=== PATIENT | male | born 1970 | race African-American/Black ===

== ENCOUNTER 2018-04-10 12:22 | Emergency (ER) | payer MEDICARE ==
[2018-04-10 13:06] LABS: #Lymphocytes 1.2 thou/uL (1.20-3.40); #Monocytes 0.7 thou/uL (0.11-0.59); #Neutrophils 12.8 thou/uL (1.40-6.50); %Basophils 0.1 % (0.0-1.0); %Eosinophils 0.2 % (0.0-10.0); %Lymphocytes 8.3 % (21.0-51.0); %Monocytes 4.4 % (0.0-10.0); Hemoglobin 14.6 g/dL (14.0-18.0); Mean Corpuscular HGB CONC 31.3 g/dL (32.0-36.0); Mean Corpuscular Hemoglobin 31.1 pg (27.0-31.0); Mean Corpuscular Volume 99.6 fL (78.0-98.0); Mean Platelet Volume 10.8 fL (7.4-10.4); Platelet Count 195 thou/uL (130-400); RBC Distribution Width 18.2 % (11.5-14.5); Red Blood Cell (RBC) Count 4.68 mill/uL (4.70-6.10); White Blood Cell (WBC) Count 14.7 thou/uL (4.8-10.8)
[2018-04-10] MEDS ORDERED: Famotidine/PF 20 mg/2ml Vial SLOW IVP SCH (13:15)
[2018-04-10 13:30] LABS: ALT (SGPT) 15 U/L (8-55); AST (SGOT) 13 U/L (5-34); Albumin 2.5 g/dL (3.5-5.0); Alkaline Phosphatase 91 U/L (40-150); Anion Gap 16 mmol/L (10-20); BUN (Urea Nitrogen) 71 mg/dL (8.9-20.6); Bilirubin, Total 0.4 mg/dL (0.2-1.2); Calc. Creatinine Clearance 0 mL/min (70-130); Calcium 7.6 mg/dL (7.8-10.44); Carbon Dioxide 19 mmol/L (22-29); Chloride 107 mmol/L (98-107); Estimated GFR-MDRD 4; Globulin 2.5 g/dL (2.4-3.5); Glucose 132 mg/dL (70-105); Potassium 3.9 mmol/L (3.5-5.1); Sodium 138 mmol/L (136-145)
[2018-04-10] MEDS ORDERED: Famotidine/PF 20 mg/2ml Vial ONE (13:47)
[2018-04-10] MEDS ORDERED: Acetaminophen 325 MG TAB PO PRN (15:28)
[2018-04-10] MEDS ORDERED: Heparin 5,000 UNITS/ML VIAL SC SCH (21:00)
[2018-04-10] MEDS ORDERED: HumaLOG 300 UNITS/3 ML VIAL SC PRN (22:47)
[2018-04-10] MEDS ORDERED: Dextrose 5% in Water 1,000 ML IV PRN (22:47)
[2018-04-10] MEDS ORDERED: Dextrose 50% Abboject 50 ML SYRINGE SLOW IVP PRN (22:47)
--- NOTE | 2018-04-11 00:42 | HP ---
CHIEF COMPLAINT: Allergic reaction. HISTORY OF PRESENT ILLNESS: This patient is a 47-year-old male who presented to the emergency department. The patient has a history of chronic kidney disease and has a shunt. He was apparently at Dr. Dash's office for the issues with his AV fistula and the plan was for a coil procedure. The patient was given Rocephin and gentamicin prior to the procedure. His blood pressure apparently was significantly high. He was given some hydralazine for that as well. Subsequently, the patient started itching and his blood pressure dropped to 70 systolic. The patient had 50 mg of Benadryl administered as well as Solu-Medrol, and he was subsequently transferred to the emergency department. En route, the patient had 500 mL of normal saline and received another 100 in the emergency department. The patient also received additional doses of Zantac and Pepcid in the emergency department. The patient has been somewhat somnolent, believed to be related to his Benadryl. The patient also had received a small dose of fentanyl and Versed in anticipation of the procedure as well. The patient remains somnolent. He also has indicated that he does not want to be admitted to the hospital. At one point, tried to get up, but was too somnolent to get up and tried to ambulate. REVIEW OF SYSTEMS: Unobtainable given the patient's somnolence. PAST MEDICAL HISTORY: Notable for end-stage renal disease, diabetes, hypertension. FAMILY HISTORY: His mother apparently had complications with diabetes. Also has siblings with diabetes. Father had some heart disease. PAST SURGICAL HISTORY: Left BKA and right eye surgery. The patient indicated that he had some type of procedure on his lungs. SOCIAL HISTORY: The patient denies alcohol, drugs, or smoking. CURRENT MEDICATIONS: 1. Coreg 3.125 one p.o. b.i.d. 2. Calcitriol presumed to be daily, but not confirmed. 3. Nifedipine 10 mg daily. 4. Lantus 10 units subcu at bedtime. 5. NovoLog sliding scale. ALLERGIES: NONE. PHYSICAL EXAMINATION: VITAL SIGNS: Most recent vitals, BP is 126/82, pulse 67, respirations 16, temperature 98.3, O2 saturation 100% on room air. GENERAL APPEARANCE: The patient is age appropriate. He is in no distress. He is very somnolent. He will awake and speak a few words and then goes quickly back to sleep. HEENT: Pupils are reactive. No OP lesions. HEART: Regular rate and rhythm without murmurs, gallops, or rubs. LUNGS: Clear to auscultation bilaterally with good chest wall expansion and air exchange. ABDOMEN: Soft, nontender, and nondistended. Positive bowel sounds. No masses. No organomegaly. EXTREMITIES: Left lower extremity BKA with prosthesis. No edema of the right lower extremity. LABORATORY DATA: White count 14.7, hemoglobin 14.6, platelets 195. Sodium 138, potassium 3.9, chloride 107, CO2 is 19, BUN 71, creatinine 16.92, glucose 132, calcium 7.6, AST 13, ALT 15, albumin 2.5. IMPRESSION AND PLAN: 1. Medication reaction. It is not clear if the patient actually had a significant anaphylactic-type reaction, just some type of idiosyncratic reaction to the medications with some itch and hypotension. It is possible that hydralazine actually caused the hypotension to occur. I discussed the case with Dr. Munoz who feels like that may be the culprit. The patient has received steroids, Benadryl, Zantac, and Pepcid. He appears to be having no further significant reaction at this time. His blood pressure is stabilized with some fluids. Given his renal disease, we will not give any more aggressive fluids at this time. 2. Hypotension, likely due to the hydralazine that was given due to his significant hypertension along with the Versed and fentanyl. He has responded to fluids. 3. End-stage renal disease. We will likely be able to follow up as an outpatient quickly. We will not likely need to initiate any dialysis in the hospital. 4. Diabetes mellitus. We will provide for Accu-Cheks and sliding scale. 5. Hypertension. Hold medications until his pressures are more stable. Job ID: [id number] [facility]
--- NOTE | 2018-04-11 14:11 | DIS ---
DATE OF ADMISSION: 04/10/2018 DATE OF DISCHARGE: 04/10/2018 DISCHARGE DIAGNOSES: 1. Adverse medication reaction. 2. Hypotension. 3. End-stage renal disease, on dialysis. 4. Diabetes. 5. Hypertension. HISTORY OF PRESENT ILLNESS: The patient is a 47-year-old male who presented to the emergency department from Dr. Munzo's clinic. The patient had been at his clinic in order to have a coil procedure to a nonfunctioning dialysis shunt. The patient received Rocephin and gentamicin. He also received Versed and fentanyl and then hydralazine because of elevated blood pressure. The patient subsequently reported some itching and then his blood pressure dropped to as low as 70s systolic. The patient received Benadryl, Pepcid, and Solu-Medrol and was transferred to the hospital. En route, the patient received 500 mL of fluid. He received another liter in the emergency department where he received Zantac and Pepcid. The patient's blood pressure did ultimately respond to fluid resuscitation and got up into the 120 systolic. The patient was very somnolent, likely due to the multiple medications. The plan was to continue to observe him overnight for any additional medication reactions and to ensure his blood pressure was stable. However, it appears the patient decided to leave against medical advice from the emergency department before going to the medical floor. Job ID: [id number]
== END 2018-04-10 17:22 | disposition left against medical advice (07) ==
LOC: ERS 12:22
DX: T78.2XXA Anaphylactic shock, unspecified, initial encounter (principal); I95.9 Hypotension, unspecified; E11.22 Type 2 diabetes mellitus with diabetic chronic kidney disease; I12.9 Hypertensive chronic kidney disease with stage 1 through stage 4 chronic kidney disease, or unspecified chronic kidney disease; N18.9 Chronic kidney disease, unspecified; Z79.899 Other long term (current) drug therapy; Z79.4 Long term (current) use of insulin
CPT/HCPCS: 36415; 80053; 84484; 85025; 93005; 94760; 96361; 96374; S0028

== ENCOUNTER 2018-04-30 17:47 | Inpatient (IN) | payer MEDICARE ==
[~2018-04-30 17:47] MED LIST: ISOVUE-370 76%-LOCM 1 ML ONE
[2018-04-30 19:20] LABS: #Lymphocytes 0.6 thou/uL (1.20-3.40); #Monocytes 0.9 thou/uL (0.11-0.59); #Neutrophils 8.4 thou/uL (1.40-6.50); %Basophils 0.5 % (0.0-1.0); %Eosinophils 0.3 % (0.0-10.0); %Lymphocytes 6.4 % (21.0-51.0); %Neutrophils 83.8 % (42.0-75.0); Hemoglobin 10.4 g/dL (14.0-18.0); Mean Corpuscular HGB CONC 31.6 g/dL (32.0-36.0); Mean Corpuscular Hemoglobin 31.5 pg (27.0-31.0); Mean Corpuscular Volume 99.6 fL (78.0-98.0); Platelet Count 214 thou/uL (130-400); RBC Distribution Width 15.7 % (11.5-14.5); Red Blood Cell (RBC) Count 3.29 mill/uL (4.70-6.10)
[2018-04-30 19:49] LABS: ALT (SGPT) 31 U/L (8-55); AST (SGOT) 19 U/L (5-34); Albumin 3.2 g/dL (3.5-5.0); Alkaline Phosphatase 138 U/L (40-150); Anion Gap 17 mmol/L (10-20); BUN (Urea Nitrogen) 23 mg/dL (8.9-20.6); Bilirubin, Total 0.4 mg/dL (0.2-1.2); Calc. Creatinine Clearance 0 mL/min (70-130); Calcium 8.6 mg/dL (7.8-10.44); Carbon Dioxide 28 mmol/L (22-29); Chloride 94 mmol/L (98-107); Estimated GFR-MDRD 11; Globulin 3.9 g/dL (2.4-3.5); Glucose 96 mg/dL (70-105); Lipase 7 U/L (8-78); Magnesium 1.9 mg/dL (1.6-2.6); Potassium 3.5 mmol/L (3.5-5.1); Protein, Total 7.1 g/dL (6.0-8.3); Sodium 135 mmol/L (136-145)
[2018-04-30] MEDS ORDERED: Fentanyl 100 MCG/2 ML VIAL ONE (19:52)
--- NOTE | 2018-04-30 20:03 | RAD ---
PORTABLE CHEST: 04/30/18 HISTORY: Chest pain, nausea, vomiting. No comparison. There is right lung opacity in the mid and lower right lung consistent with atelectasis and/or infilt rate. Probable small right effusion. Left lung appears clear. Heart size is mildly prominent. IMPRESSION: Evidence of right lung infiltrate and possibly associated right effusion. Followup recommended. POS: [facility]
--- NOTE | 2018-04-30 20:24 | CT ---
CTA AORTOGRAM CHEST AND ABDOMEN WITH CONTRAST: 04/30/18 Multiple axial tomograms obtained through the chest and abdomen following aortogram protocol with mul tiplanar reconstructions and 3D postprocessing. INDICATIONS: Pain with nausea, vomiting. Hypertension. FINDINGS: No evidence of thoracic aortic aneurysm or dissection. No evidence of abdominal aortic aneurysm or dissection. Atherosclerotic changes noted in the distal a bdominal aorta. The aortic bifurcation is patent and the visualized iliac arteries are unremarkable. Small right sided effusion with right lower lobe atelectasis. Hazy alveolar infiltrative changes in t he right lower lobe. There are streaky atelectasis and/or infiltrative changes in the right middle lo be. Some hazy alveolar opacities consistent with infiltrate in the posterior left lower lobe. Some mi ld left lower lobe atelectasis posteriorly in the posterior gutter. Mediastinum unremarkable. Upper abdomen unremarkable. IMPRESSION: 1. No evidence of thoracic or abdominal aortic aneurysm or dissection. 2. Small right sided pleural effusion. Lung densities consistent with atelectasis and infiltrate bilaterally as described above. POS: [facility]
[2018-04-30] MEDS ORDERED: cloNIDine 0.1 MG TAB ONE ×2 (21:03→22:13)
[2018-04-30] MEDS ORDERED: NIFEdipine 10 MG CAP PO SCH (22:30)
[2018-04-30 22:50] LABS: Troponin I 0.043 ng/mL (< 0.028)
[2018-04-30] MEDS ORDERED: Nitroglycerin 2% Ointment 1 INCH/1 GM Packet ONE (23:17)
[2018-04-30] MEDS ORDERED: Labetalol HCl 100 MG/20 ML VIAL SLOW IVP PRN (23:54)
[2018-04-30] MEDS ORDERED: hydrALAZINE 25 MG TAB ONE (23:54)
[2018-04-30] MEDS ORDERED: hydrALAZINE 25 MG TAB PO SCH (23:59)
[2018-04-30] MEDS ORDERED: cloNIDine 0.1 MG TAB PO SCH (23:59)
[2018-05-01 01:42] LABS: Troponin I 0.049 ng/mL (< 0.028)
[2018-05-01] MEDS ORDERED: Acetaminophen 325 MG TAB ONE (02:22)
[2018-05-01] MEDS ORDERED: Dextrose 5% in Water 1,000 ML IV PRN (03:12)
[2018-05-01] MEDS ORDERED: HumaLOG 300 UNITS/3 ML VIAL SC PRN ×2 (03:12)
[2018-05-01] MEDS ORDERED: Dextrose 50% Abboject 50 ML SYRINGE SLOW IVP PRN (03:12)
[2018-05-01] MEDS ORDERED: Morphine 2 MG/ML SYRINGE ONE (03:51)
--- NOTE | 2018-05-01 04:08 | HP ---
CHIEF COMPLAINT: Hypertensive urgency. HISTORY OF PRESENT ILLNESS AND REVIEW OF SYSTEMS: Mr. Martinez is a 47-year-old man who presents today complaining of feeling generally unwell. He developed nausea and vomiting approximately one week ago. The patient states he has had difficulties tolerating much more than sips of water. He does have a background of end-stage renal disease and has continued to receive dialysis on Tuesdays, , and Saturdays. Last received dialysis earlier today. The patient reports having an episode of vomiting. He also complains of having very black loose stools for the last week, however, guaiac negative in the ED. He reports having generalized muscle and joint aches for the last three days. Has not had any fevers or chills. Reports having a daughter who has cold. Otherwise, no other family members involved. The patient also complains of having an episode of severe chest pain last night, which he describes as a chest, lasting approximately 30-45 minutes. He rates it a 9/10 in severity and nonradiating. No recurrent chest pain since then. He does however report having orthopnea for the last few days. Denies any hemoptysis. Does have a cough productive for sputum, but is unable to state what color it is. He denies any further episodes of vomiting while in the ED today, but has been seen spitting up sputum excessively until back while here. The patient states he has been compliant with his usual home medications including his blood pressure medication, however, has provided inconsistent details of the medications he usually takes at home to the nurse. Initially stating that he only takes nifedipine 10 mg once daily. As we continued to try to improve his blood pressure, he later endorsed taking clonidine once a day. After verifying medications 3rd time, the nurse then found that he actually takes clonidine 0.1 mg by mouth twice a day. There has been some difficulty for final other home medications. It is believed this is due to patient's compliance with home medications. On initial presentation, the patient's blood pressure was 187/81. It further increased to 236/90. Due to complaints of pain, the patient was given fentanyl 50 mcg IV push as well as clonidine. He received a total of two doses of clonidine without any significant improvement in his blood pressure. He was started on Levaquin after CT dissection showed a small right-sided pleural effusion and bilateral infiltrates. The patient was then given his usual dose of nifedipine immediate release 10 mg. Again, no significant improvement, therefore he was given nitropaste. This brought his blood pressure slightly down to 201/94. PAST MEDICAL HISTORY: 1. Diabetes, type 2. 2. End-stage renal disease, on dialysis Friday, , and Friday. 3. Hypertension. PAST SURGICAL HISTORY: 1. Right vugeh-bie-likk amputation. 2. Right eye surgery. 3. Left Daksha fistula placed in May 2014. SOCIAL HISTORY: Denies any tobacco use or alcohol use. No illicit drug use. ALLERGIES: HE REPORTS AN ALLERGY TO GENTAMICIN. CURRENT MEDICATIONS: 1. Coreg 3.125 mg p.o. twice daily. 2. Calcitriol 0.25 mcg. 3. Nifedipine 10 mg p.o. daily. 4. Lantus 10 units subcutaneous every evening. 5. NovoLog insulin sliding scale. PHYSICAL EXAMINATION: GENERAL: The patient appears generally unwell, but in no acute distress. VITAL SIGNS: Temperature 98.7, blood pressure 201/94, heart rate 90, respirations 20, O2 saturation 96% on 2 L. HEENT: Normocephalic and atraumatic. Pupils are equal, round, and reactive to light. Sclerae are without icterus. His extraocular movements are intact. No nystagmus. Oropharynx is clean. NECK: Supple without lymphadenopathy. Full range of motion. LUNGS: Clear to auscultation with reduced breath sounds at the bases. No wheezes, rales, or rhonchi. CARDIAC: Regular rate and rhythm. ABDOMEN: Soft, nontender, nondistended. Normoactive bowel sounds present. No guarding or rigidity. No renal angle tenderness. EXTREMITIES: No edema or swelling in the right lower extremity. The left lower leg prosthesis in place. NEUROLOGIC: Alert and oriented x3. SKIN: Without rash or jaundice. LABORATORY DATA: Notable for sodium of 135, which is stable. BUN 23, creatinine 6.63, GFR of 11. Magnesium 1.9. LFTs unremarkable. Troponin 0.054, 0.043, 0.049. BNP 134.6. IMAGING DATA: 1. Chest x-ray, 04/22/2018. Evidence of right lung infiltrate and possible associated right effusion. 2. CT dissection, 04/22/2018. Small right-sided pleural effusion. Lung densities consistent with atelectasis and infiltrate bilaterally. No evidence of thoracic or abdominal aortic aneurysm or dissection. IMPRESSION AND PLAN: Mr. Martinez is a 47-year-old man being admitted for management with the following; 1. Hypertensive urgency. He has had no significant improvement with clonidine 0.1 mg x2. He was given his home medication of nifedipine 10 mg p.o. We have prescribed hydralazine 25 mg p.o. x1 and labetalol 10 mg IV x1. He also received a 3rd dose of clonidine 0.1 mg p.o. We can continue hydralazine 25 mg p.o. q.i.d. Continue to monitor blood pressure. 2. Pneumonia. The patient was started on Levaquin. 3. End-stage renal disease, on dialysis. Consult placed to Nephrology. 4. Diabetes. Insulin sliding scale. Monitor glucose. 5. Gastrointestinal prophylaxis. 6. Deep venous thrombosis prophylaxis. The patient is a full code status. The patient discussed with Dr. Powell who agrees with plan of care as described above. Job ID: [id number]
[2018-05-01 05:12] VITALS: BMI 35.4
[2018-05-01] MEDS: hydrALAZINE 25 MG TAB PO SCH ×4 (09:18→20:21)
--- NOTE | 2018-05-01 10:05 | CON ---
DATE OF CONSULTATION: SERVICE: Renal Medicine. HISTORY OF PRESENT ILLNESS: Mr. Martinez is a 47-year-old black male with ESRD - on maintenance hemodialysis, failed peritoneal dialysis, type 2 diabetes mellitus, peripheral vascular disease, and was sent from the [facility] to the ER. He has been complaining of nausea and vomiting for the last one week. He has significant decreased p.o. intake. He has been to the ER twice at [facility] and in [place]. However, due to the persistent nausea and vomiting and difficulty in dialyzing due to his refractory vomiting, the patient was sent to the ER. At the ER, he was noted to be complaining of chest pain as well. Blood pressure was poorly controlled due to his inability to take his BP medications from the nausea and vomiting. He was also complaining of some dark stools. Currently this morning, still nauseous. However, still has intermittent chest pain. We are now being consulted for his maintenance hemodialysis. He did receive dialysis yesterday. REVIEW OF SYSTEMS: Positive for nausea and vomiting. No fever. ? of diarrhea. ? of melena. No hematemesis. No shortness of breath. Occasional chest pain. No abdominal pain. Decreased appetite. Decreased energy level. No headache. No diplopia. No syncopal episode. Occasional joint pains. MEDICATIONS: 1. DuoNeb q.4. 2. Hydralazine 25 mg p.o. q.i.d. 3. Humalog sliding scale. 4. Levaquin 750 mg IV q.24 hours. 5. P.r.n. Catapres. PAST MEDICAL HISTORY: The patient has ESRD from diabetic nephropathy, type 2 diabetes mellitus, diabetic gastroparesis, peripheral vascular disease, long-standing hypertension. PAST SURGICAL HISTORY: Status post right BKA, status post right eye surgery, status post AV fistula placement, status post cuffed hemodialysis catheter placement. SOCIAL HISTORY: The patient is , 2 children. Lives in [place]. 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 No tobacco use. No IV drugs. No alcohol. Status post blood transfusion. Education, high school. ALLERGIES: GENTAMICIN. TRAUMA: None. IMMUNIZATION: Up-to-date. HOSPITALIZATIONS: Please see past medical history. FAMILY HISTORY: No family history of ESRD. PHYSICAL EXAMINATION: VITAL SIGNS: Blood pressure is 187/87, heart rate 85, respiratory rate 18, temperature 98.3, and pulse ox 96%. GENERAL: Awake, alert, comfortable, not in distress. SKIN: Adequate turgor. HEENT: He has a pinkish conjunctivae. Anicteric sclerae. NECK: No neck mass. No carotid bruits. No JVD. CHEST: No deformities. LUNGS: Clear breath sounds. HEART: Normal sinus rhythm. No murmurs, no gallops, no rubs. ABDOMEN: Globular, soft, nontender. No masses. EXTREMITIES: No edema, status post right BKA. LABORATORY DATA: Laboratories of April 30, 2018; white count 10, hemoglobin 10.4. Sodium 135, potassium 3.5, chloride 94, carbon dioxide 28, BUN 23, creatinine 6.63. BNP is 136. Troponin I is 0.049. Chest x-ray/CT scan, no overt CHF. No evidence of any aortic aneurysm. ASSESSMENT AND PLAN: 1. Nausea and vomiting - refractory to current medications. This could be a diabetic gastroparesis. We will start Reglan 5 mg before meals at bedtime. We will consult GI for further evaluation. 2. End-stage renal disease, stable. We will continue current hemodialysis regimen on Friday, , and Friday. 3. Hypertension. Resume BP medications. 4. Chest pain. The patient is being ruled out for myocardial infarction. Job ID: [id number]
[2018-05-01] MEDS ORDERED: Pantoprazole 40 MG VIAL IVP SCH (10:30)
[2018-05-01] MEDS: Metoclopramide HCl 10 MG TAB PO SCH ×3 (10:52→20:22)
[2018-05-01] MEDS ORDERED: Promethazine HCl 25 MG/ML VIAL IM/IV PRN (15:32)
[2018-05-01] MEDS ORDERED: PROVENTIL INHALER 6.7 G (200 INHALATIONS) INH PRN (16:39)
[2018-05-01] MEDS: Sevelamer Carbonate 800 MG TAB PO SCH (17:54)
--- NOTE | 2018-05-01 18:00 | ULT ---
RIGHT UPPER QUADRANT ULTRASOUND: 05/01/18 HISTORY: Right upper quadrant pain. Multiple longitudinal and transverse images of the right upper quadrant of the abdomen is obtained us ing a multihertz curvilinear transducer. Real time, color flow, and spectral waveform doppler analysi s demonstrates the liver to be unremarkable. No evidence of hepatic parenchymal masses or lesions see n. Normal hepatopedal flow is seen. The common bile duct is of normal size measuring 3 mm. Gallbladde r wall is not significantly thickened. No evidence of gallstones seen. The visualized portions of the pancreas is unremarkable. Right kidney is unremarkable with no evidence hydronephrosis or masses. IMPRESSION: Normal right upper quadrant ultrasound. POS: [facility]
[2018-05-01] MEDS: cloNIDine 0.2 MG TAB PO SCH (20:21)
[2018-05-01] MEDS: Carvedilol 25 MG TAB PO SCH (20:21)
[2018-05-01] MEDS: Pantoprazole 40 MG VIAL IVP SCH (20:23)
[2018-05-01] MEDS: Promethazine HCl 12.5 MG in Sodium Chloride 0.9% 50 ML IVPB PRN (21:06)
--- NOTE | 2018-05-01 22:51 | PDOC.PN ---
- Subjective Encounter Start Date: 05/01/18 Encounter Start Time: 13:55 Continues to have some nausea. Says he cannot sleep. - Objective Vital Signs & Weight: Vital Signs (12 hours) Temp Pulse Resp BP BP Pulse Ox 05/01/18 20:21 91 207/92 H 05/01/18 19:00 91 L 05/01/18 18:59 92 L 05/01/18 18:08 87 205/95 H 05/01/18 15:55 87 05/01/18 13:59 87 12 05/01/18 13:05 87 05/01/18 11:00 98.6 F 90 18 197/90 H 94 L 05/01/18 10:56 85 16 Weight Weight 232 lb 11.2 oz I&O: 04/30/18 05/01/18 05/02/18 06:59 06:59 06:59 Intake Total 120 Balance 120 Result Diagrams: 04/30/18 19:10 04/30/18 19:10 Additional Labs: Accuchecks 05/01/18 05/01/18 05/01/18 17:07 10:57 05:25 POC Glucose 97 147 H 101 Phys Exam - Physical Examination Constitutional: NAD Respiratory: no wheezing, no rhonchi Left rales Cardiovascular: RRR, no significant murmur, no rub Gastrointestinal: soft RUQ TTP with guarding and positive Villeda's. Musculoskeletal: no edema Left BKA, Right foot partial amputation. Psychiatric: normal affect, A&O x 3 Dx/Plan (1) Hypertensive urgency Code(s): I16.0 - HYPERTENSIVE URGENCY Status: Acute (2) Pneumonia Code(s): J18.9 - PNEUMONIA, UNSPECIFIED ORGANISM Status: Acute (3) ESRD (end stage renal disease) Code(s): N18.6 - END STAGE RENAL DISEASE Status: Acute (4) Diabetes mellitus Code(s): E11.9 - TYPE 2 DIABETES MELLITUS WITHOUT COMPLICATIONS Status: Acute (5) RUQ abdominal pain Code(s): R10.11 - RIGHT UPPER QUADRANT PAIN Status: Acute (6) Insomnia Code(s): G47.00 - INSOMNIA, UNSPECIFIED Status: Acute - Plan * Add Phenergan for the nausea and insomnia. * Abdominal US. * Continue abx. * Continue dialysis.
[2018-05-02] MEDS ORDERED: Acetaminophen 325 MG TAB PO PRN (06:10)
[2018-05-02] MEDS: Metoclopramide HCl 10 MG TAB PO SCH ×4 (08:44→20:15)
[2018-05-02] MEDS: Sevelamer Carbonate 800 MG TAB PO SCH ×3 (08:46→18:26)
[2018-05-02] MEDS: Losartan 25 MG TAB PO SCH (08:46)
[2018-05-02] MEDS: Carvedilol 25 MG TAB PO SCH ×2 (08:46→20:15)
[2018-05-02] MEDS: Sodium Chloride 0.9% (PF) 10 ML VIAL FS PRN (08:47)
[2018-05-02] MEDS: cloNIDine 0.2 MG TAB PO SCH ×2 (08:47→20:15)
[2018-05-02] MEDS: NIFEdipine XL 30 MG TAB PO SCH (08:47)
[2018-05-02] MEDS: hydrALAZINE 25 MG TAB PO SCH ×4 (08:47→20:16)
[2018-05-02] MEDS: Pantoprazole 40 MG VIAL IVP SCH ×2 (08:47→20:16)
[2018-05-02] MEDS ORDERED: Lidocaine 4% Cream 5 GM TUBE TOP PRN (10:35)
--- NOTE | 2018-05-02 10:59 | PRG ---
DATE OF SERVICE: 05/02/2018 SERVICE: Renal Medicine. SUBJECTIVE: Mr. Martinez is a 47-year-old black male with ESRD, was admitted for persistent nausea and vomiting for the last several days. GI consult has been done. He has been started back on Reglan. His nausea and vomiting still persistent. He voices no complaints of chest pain or shortness of breath. OBJECTIVE: VITAL SIGNS: Blood pressure is 186/70, heart rate 86, respiratory rate 21, temperature 98.2, and pulse ox 98%. GENERAL: Awake, alert, comfortable, not in distress. SKIN: Adequate turgor. HEENT: Pinkish conjunctivae. Anicteric sclerae. No neck mass. No carotid bruits. No JVD. CHEST: No deformities. LUNGS: Clear breath sounds. No wheezing. No crackles. HEART: Normal sinus rhythm. No murmurs, gallops, or rubs. ABDOMEN: Globular, soft, nontender. No masses. Positive for PD catheter. EXTREMITIES: No edema. No deformities. MEDICATIONS: Medications of May 02, 2018, was reviewed. LABORATORY DATA: Laboratories of May 02, 2018, glucose is 92. May 01, 2018, troponin I is 0.049. April 30, 2018; potassium 3.5, BUN 23, creatinine 6.63, hemoglobin 10.4. ASSESSMENT AND PLAN: 1. End-stage renal disease, stable. We will be dialyzing this patient. I will plan to do 3-4 hour hemodialysis with this patient. Fluid removal only as tolerated. 2. Nausea and vomiting - currently on Reglan. Most likely from underlying diabetic gastroparesis. 3. Status post PD catheter placement - the patient has been converted from peritoneal dialysis to hemodialysis. I offered to have the PD catheter removed. The patient declined for the moment. Overall, agree with current management. Job ID: [id number]
--- NOTE | 2018-05-02 16:27 | CON ---
DATE OF CONSULTATION: 05/01/2018 Mr. Martinez is a 47-year-old gentleman, who is in the hospital on 05/01 with pneumonia. He has had some nausea and vomiting as well. I am asked to see him with regards that. He reports that for about a week or so, he had been having cough, which is progressive, some chest discomfort and just felt unwell in the past week, he developed some nausea and vomiting prior to Job ID: [id number]
--- NOTE | 2018-05-02 17:07 | PRG ---
DATE OF SERVICE: 05/02/2018 SUBJECTIVE: Mr. Martinez is on dialysis. He reports he has had no nausea or vomiting today. He is tolerating pills. His cough has improved, but still when he coughs up, he will spit up in an emesis container bag that he keeps on his bed. He is adamant he is not throwing up. He did eat breakfast this morning. MEDICATIONS: 1. Tylenol. 2. Proventil. 3. DuoNeb. 4. Coreg. 5. Catapres. 6. IV fluids. 7. Apresoline. 8. Insulin sliding scales. 9. Labetalol. 10. Levofloxacin. 11. Cozaar. 12. Reglan 5 p.o. q.h.s. 13. Protonix. 14. Phenergan . PHYSICAL EXAMINATION: GENERAL: He is resting comfortably in dialysis. VITAL SIGNS: Temperature is 98.2, T-max is 99.1 before this morning, blood pressure 186/70, respirations 18, and pulse 84. LUNGS: Clear. HEART: Regular rate and rhythm. ABDOMEN: Soft and nontender. There is no rebound. There is no guarding. EXTREMITIES: No clubbing, cyanosis, or edema. LABORATORY DATA: None today except for glucose. ASSESSMENT: 1. Nausea and vomiting. I think this is related to his pneumonia. He says he had cough and then he throw up. He could have a little bit of gastroparesis, which could exacerbate by infection. 2. With regard to his report of black stools, this is in my dictation from yesterday, which is not yet transcribed, but he was taking Pepto-Bismol. It would be reasonable, we will check his hemoglobin again tomorrow since he is a little bit anemic to make sure it is not changing. 3. We will go ahead and check a hemoglobin A1c and B12 and folate to evaluate his glucose control and also in light of his elevated MCV. If he has recurrent problems, we could consider endoscopy after his pneumonia improves, but yesterday, we did not feel he was a candidate for endoscopy and degree of coughing and difficulty with respiration and wheezing. We will continue to follow along with you. Initial dictation of H and P, I have confirmed, it has been received, is not transcribed yet from yesterday. If there is any further questions regarding that, please do not hesitate to contact by phone [phone]. Job ID: [id number]
--- NOTE | 2018-05-02 17:34 | PDOC.PN ---
- Subjective Encounter Start Date: 05/02/18 Encounter Start Time: 17:32 Feeling a little better today. Just finished his dialysis. Less abdominal pain. - Objective Vital Signs & Weight: Vital Signs (12 hours) Temp Pulse Resp BP Pulse Ox 05/02/18 17:17 98.7 F 81 15 188/84 H 93 L 05/02/18 09:38 84 186/70 H 05/02/18 08:30 98.2 F 85 21 H 206/92 H 98 Weight Weight 232 lb 1 oz I&O: 05/01/18 05/02/18 05/03/18 06:59 06:59 06:59 Intake Total 120 Balance 120 Result Diagrams: 04/30/18 19:10 04/30/18 19:10 Additional Labs: Accuchecks 05/02/18 05/02/18 05/01/18 11:07 05:52 20:20 POC Glucose 112 H 92 107 Phys Exam - Physical Examination Constitutional: NAD Respiratory: no wheezing, no rales, no rhonchi, clear to auscultation bilateral Cardiovascular: RRR, no significant murmur, no rub Gastrointestinal: soft, no distention, positive bowel sounds Minimal TTP RUQ Musculoskeletal: no edema L BKA, R Mid-foot amp Psychiatric: normal affect, A&O x 3 Dx/Plan (1) Hypertensive urgency Code(s): I16.0 - HYPERTENSIVE URGENCY Status: Acute (2) Pneumonia Code(s): J18.9 - PNEUMONIA, UNSPECIFIED ORGANISM Status: Acute (3) ESRD (end stage renal disease) Code(s): N18.6 - END STAGE RENAL DISEASE Status: Acute (4) Diabetes mellitus Code(s): E11.9 - TYPE 2 DIABETES MELLITUS WITHOUT COMPLICATIONS Status: Acute (5) RUQ abdominal pain Code(s): R10.11 - RIGHT UPPER QUADRANT PAIN Status: Acute (6) Insomnia Code(s): G47.00 - INSOMNIA, UNSPECIFIED Status: Acute - Plan * Seems to be improved with HD. * BP improving. * Abdominal pain improving. US was negative. * If he continues to have good rate control in the morning, can likely DC.
[2018-05-03 06:08] LABS: #Eosinphils 0.1 thou/uL (0.0-0.7); #Lymphocytes 0.8 thou/uL (1.20-3.40); #Monocytes 0.9 thou/uL (0.11-0.59); #Neutrophils 5.7 thou/uL (1.40-6.50); %Basophils 0.4 % (0.0-1.0); %Eosinophils 1.4 % (0.0-10.0); %Lymphocytes 10.4 % (21.0-51.0); %Monocytes 11.9 % (0.0-10.0); %Neutrophils 75.9 % (42.0-75.0); Hemoglobin 9.4 g/dL (14.0-18.0); Mean Corpuscular HGB CONC 31.9 g/dL (32.0-36.0); Mean Corpuscular Hemoglobin 31.3 pg (27.0-31.0); Mean Corpuscular Volume 98.2 fL (78.0-98.0); Mean Platelet Volume 7.9 fL (7.4-10.4); Platelet Count 311 thou/uL (130-400); White Blood Cell (WBC) Count 7.6 thou/uL (4.8-10.8)
[2018-05-03 06:18] LABS: Hemoglobin A1c 5.8 % (4.0-6.0)
[2018-05-03 07:02] LABS: Folate (Folic Acid) 3.7 ng/mL (7.0-31.4)
[2018-05-03] MEDS: cloNIDine 0.2 MG TAB PO SCH ×2 (07:39→20:02)
[2018-05-03] MEDS: hydrALAZINE 25 MG TAB PO SCH ×5 (07:40→20:03)
[2018-05-03] MEDS: NIFEdipine XL 30 MG TAB PO SCH ×2 (07:40→10:49)
[2018-05-03] MEDS: Losartan 25 MG TAB PO SCH (07:40)
[2018-05-03] MEDS: Carvedilol 25 MG TAB PO SCH ×2 (07:40→20:03)
--- NOTE | 2018-05-03 08:55 | PDOC.PN ---
- Subjective Encounter Start Date: 05/03/18 Encounter Start Time: 08:53 Nausea better. Eating breakfast. Abdominal pain resolved. No BM today. Still having trouble sleeping. Had a bad experience in a [facility] hospital when he was a child and says he doesn't like being in one now. Makes him anxious. Falls asleep and wakes startled. - Objective Vital Signs & Weight: Vital Signs (12 hours) Temp Pulse Resp BP Pulse Ox 05/03/18 07:32 99.9 F H 86 18 215/101 H 96 05/03/18 06:50 97 05/03/18 06:48 83 12 05/03/18 06:30 216/100 H 05/03/18 06:25 221/100 H 05/03/18 05:05 191/97 H 05/03/18 05:04 83 05/03/18 04:41 99 F 83 18 201/91 H 97 05/03/18 02:43 94 L 05/03/18 02:32 79 16 94 L 05/02/18 22:32 90 18 96 Weight Weight 230 lb I&O: 05/02/18 05/03/18 05/04/18 06:59 06:59 06:59 Intake Total 120 740 Output Total 0 Balance 120 740 Result Diagrams: 05/03/18 05:34 04/30/18 19:10 Additional Labs: Accuchecks 05/03/18 05/02/18 05/02/18 05:38 20:36 17:35 POC Glucose 121 H 172 H 81 05/02/18 11:07 POC Glucose 112 H Phys Exam - Physical Examination Constitutional: NAD Pleasant and cooperative. Respiratory: no wheezing, no rales, no rhonchi Cardiovascular: RRR, no rub I-II/ M Gastrointestinal: soft, non-tender, no distention, positive bowel sounds Musculoskeletal: no edema Left BKA, R mid-foot amp Neurological: non-focal Psychiatric: normal affect, A&O x 3 Skin: no rash Dx/Plan (1) Hypertensive urgency Code(s): I16.0 - HYPERTENSIVE URGENCY Status: Resolved (2) Pneumonia Code(s): J18.9 - PNEUMONIA, UNSPECIFIED ORGANISM Status: Acute Comment: Continue renally dosed Levaquin. Oxygen sats improving. (3) ESRD (end stage renal disease) Code(s): N18.6 - END STAGE RENAL DISEASE Status: Acute Comment: Followed by Dr. Sánchez. Continue dialysis per his direction. (4) Diabetes mellitus Code(s): E11.9 - TYPE 2 DIABETES MELLITUS WITHOUT COMPLICATIONS Status: Acute Comment: Well controlled. A1c level good (5) RUQ abdominal pain Code(s): R10.11 - RIGHT UPPER QUADRANT PAIN Status: Resolved (6) Insomnia Code(s): G47.00 - INSOMNIA, UNSPECIFIED Status: Acute Comment: PRN sleep aid (7) Nausea & vomiting Code(s): R11.2 - NAUSEA WITH VOMITING, UNSPECIFIED Status: Resolved (8) Hypertension Code(s): I10 - ESSENTIAL (PRIMARY) HYPERTENSION Status: Chronic Comment: Still very high. Did not decrease with dialysis. (9) Folate deficiency Code(s): E53.8 - DEFICIENCY OF OTHER SPECIFIED B GROUP VITAMINS Status: Acute (10) Macrocytosis Code(s): D75.89 - OTHER SPECIFIED DISEASES OF BLOOD AND BLOOD-FORMING ORGANS Status: Acute - Plan * Add po Folate. * Increase Procardia XL to 60 mg * Increase the hydralazine to 50 mg po qid. * Continue Levaquin, oxygen. * Add sleep aid. * GI following. * Nephrology following.
[2018-05-03] MEDS ORDERED: ALPRAZolam 0.25 MG TAB PO PRN (09:01)
[2018-05-03] MEDS: Metoclopramide HCl 10 MG TAB PO SCH ×4 (09:38→20:03)
[2018-05-03] MEDS: Pantoprazole 40 MG VIAL IVP SCH ×2 (09:40→20:02)
[2018-05-03] MEDS: Sodium Chloride 0.9% (PF) 10 ML VIAL FS PRN (09:40)
[2018-05-03] MEDS: Sevelamer Carbonate 800 MG TAB PO SCH ×3 (09:46→16:08)
--- NOTE | 2018-05-03 10:21 | PRG ---
DATE OF SERVICE: 05/03/2018 SUBJECTIVE: Mr. Martinez is a 47-year-old black male with ESRD. He was initially admitted for refractory nausea and vomiting. He was found to have pneumonia and been started on IV antibiotics. He has been referred to GI for his persistent nausea and vomiting. Recommendation is simple observation with him with eventual endoscopy. It is possible he may have also aspirated from his vomiting. He is feeling a little better today. He underwent dialysis yesterday without any difficulty. OBJECTIVE: VITAL SIGNS: Blood pressure is 215/101, heart rate 86, respiratory rate 18, temperature 99.9, and pulse ox 96%. GENERAL: Awake, alert, and comfortable, not in distress. SKIN: Adequate turgor. HEENT: He has a slightly pale conjunctivae. Anicteric sclerae. NECK: No neck mass. No carotid bruits. No JVD. CHEST: No deformities. LUNGS: Clear breath sounds. HEART: Normal sinus rhythm. No murmurs. No gallops. No rubs. ABDOMEN: Globular, soft, and nontender. No masses. EXTREMITIES: No edema. No deformities. MEDICATIONS: Medications of May 03, 2018, was reviewed. LABORATORY DATA: Laboratories of May 03, 2018, white count 7.6 and hemoglobin 9.4. On April 30, 2018, BUN 23 and creatinine 6.63. ASSESSMENT AND PLAN: 1. End-stage renal disease, stable, continuing Friday, , and Friday hemodialysis regimen. Tolerating said treatment. Fluid removal as tolerated. 2. Anemia. We will start Epogen once the blood pressure is better controlled. 3. Hypertension. Nifedipine started this morning at 60 mg XL tablet once a day. Continue current management. 4. Nausea and vomiting - secondary to diabetic gastroparesis slightly improving. 5. Pneumonia on antibiotics. Overall, agree with current management. Recheck basic metabolic panel and CBC in a.m. Job ID: [id number]
[2018-05-03] MEDS ORDERED: NIFEdipine XL 30 MG TAB PO SCH (11:45)
[2018-05-03] MEDS: Folic Acid 1 MG TAB PO SCH (12:19)
--- NOTE | 2018-05-03 14:01 | PRG ---
DATE OF SERVICE: 05/03/2018 SUBJECTIVE: Mr. Martinez is eating well. He has had no nausea. No vomiting. He does state he has been constipated for 4 days and requests a laxative. His cough is slowly improving. He denies shortness of breath. OBJECTIVE: VITAL SIGNS: Temperature max 99.9, T-current 98.7, pulse 82, respirations 17, O2 saturation 94% on 3 L, blood pressure 189/88. ABDOMEN: Soft and nontender. LUNGS: Clear with decreased breath sounds at the bases. LABORATORY DATA: White count 7.6, hemoglobin 9.4, platelet count 311. B12 was 1726. Folate was 3.7. Hemoglobin A1c is 5.8. ASSESSMENT: 1. Nausea and vomiting, not likely related to gastroparesis as he has an A1c of less than 6 and good diabetic control. Likely, this is related to his chronic cough. It seems that he had been getting worse and worse cough over the past several weeks until he was diagnosed with pneumonia on admission. With treatment of the pneumonia, the nausea and vomiting have resolved. 2. Pneumonia, likely community-acquired. 3. End-stage renal disease. 4. Hypertension. 5. Low folate. RECOMMENDATIONS: 1. Continue folate replacement. 2. Continue PPI therapy prophylactically. 3. I think the Reglan probably can be discontinued. We will leave that up to his primary physician. As he moves toward discharge, he can probably move to Protonix orally once daily. If his symptoms recur, we can consider endoscopy, but at this time with the pneumonia, he is at high risk for sedation and endoscopy from a cardiopulmonary standpoint, and that should be held off. We will follow from a distance. If I can be of any further assistance in his care, please do not hesitate to contact me. Job ID: [id number]
[2018-05-03] MEDS: Promethazine HCl 12.5 MG in Sodium Chloride 0.9% 50 ML IVPB PRN (18:30)
[2018-05-04 07:10] LABS: #Eosinphils 0.2 thou/uL (0.0-0.7); #Lymphocytes 0.8 thou/uL (1.20-3.40); #Neutrophils 6.5 thou/uL (1.40-6.50); %Basophils 0.3 % (0.0-1.0); %Eosinophils 1.9 % (0.0-10.0); %Lymphocytes 9.6 % (21.0-51.0); %Monocytes 11.6 % (0.0-10.0); %Neutrophils 76.7 % (42.0-75.0); Hemoglobin 9.6 g/dL (14.0-18.0); Mean Corpuscular HGB CONC 31.7 g/dL (32.0-36.0); Mean Corpuscular Volume 97.8 fL (78.0-98.0); Mean Platelet Volume 7.6 fL (7.4-10.4); Platelet Count 322 thou/uL (130-400); RBC Distribution Width 16.1 % (11.5-14.5); White Blood Cell (WBC) Count 8.4 thou/uL (4.8-10.8)
[2018-05-04] MEDS ORDERED: Polyethylene Glycol 3350 17 GM Packet PO PRN (07:22)
--- NOTE | 2018-05-04 07:24 | PDOC.PN ---
- Subjective Encounter Start Date: 05/04/18 Encounter Start Time: 07:22 Subjective: still has cough, OW no complaints - Objective MAR Reviewed: Yes Vital Signs & Weight: Vital Signs (12 hours) Temp Pulse Resp BP Pulse Ox 05/04/18 07:06 90 14 05/04/18 03:56 82 20 05/04/18 03:40 98.2 F 78 18 165/77 H 96 05/04/18 01:44 71 16 05/03/18 22:17 84 14 05/03/18 20:00 98.0 F 83 18 159/76 H 93 L Weight Weight 230 lb I&O: 05/03/18 05/04/18 05/05/18 06:59 06:59 06:59 Intake Total 740 900 Output Total 0 Balance 740 900 Result Diagrams: 05/04/18 06:37 04/30/18 19:10 Additional Labs: Accuchecks 05/04/18 05/03/18 05/03/18 05:22 20:53 16:44 POC Glucose 122 H 150 H 114 H 05/03/18 10:56 POC Glucose 205 H Phys Exam - Physical Examination Neck: no JVD dull R base, no rales Cardiovascular: RRR, no significant murmur Gastrointestinal: soft, positive bowel sounds Musculoskeletal: no edema Dx/Plan (1) Diabetes mellitus Code(s): E11.9 - TYPE 2 DIABETES MELLITUS WITHOUT COMPLICATIONS Status: Acute Qualifiers: Diabetes mellitus type: type 2 Diabetes mellitus coagulation operator insulin use: with [facility] use Diabetes mellitus complication status: with kidney complications Diabetes mellitus complication detail: with chronic kidney disease Chronic kidney disease stage: on chronic dialysis Qualified Code(s) : E11.22 - Type 2 diabetes mellitus with diabetic chronic kidney disease; N18.6 - End stage renal disease; Z79.4 - intermediate (current) use of insulin; Z99.2 - Dependence on renal dialysis Comment: Well controlled. A1c level good (2) ESRD (end stage renal disease) Code(s): N18.6 - END STAGE RENAL DISEASE Status: Chronic Comment: Followed by Dr. Sánchez. Continue dialysis per his direction. (3) Insomnia Code(s): G47.00 - INSOMNIA, UNSPECIFIED Status: Chronic Comment: PRN sleep aid (4) Pneumonia Code(s): J18.9 - PNEUMONIA, UNSPECIFIED ORGANISM Status: Acute Qualifiers: Laterality: right Lung location: lower lobe of lung Qualified Code(s): J13 - Pneumonia due to Streptococcus pneumoniae Comment: Continue renally dosed Levaquin. Oxygen sats improving. (5) Hypertension Code(s): I10 - ESSENTIAL (PRIMARY) HYPERTENSION Status: Chronic Qualifiers: Hypertension type: essential hypertension Qualified Code(s): I10 - Essential (primary) hypertension Comment: Still very high. Did not decrease with dialysis. (6) Nausea & vomiting Code(s): R11.2 - NAUSEA WITH VOMITING, UNSPECIFIED Status: Resolved Qualifiers: Vomiting type: unspecified Vomiting Intractability: non-intractable Qualified Code(s): R11.2 - Nausea with vomiting, unspecified - Plan cont HD per renal -: cont antibx, deescalatete to po -: cont accu/ss/ LA insulin -: cont coreg, nifedipine , etc * .
[2018-05-04 07:32] LABS: Anion Gap 19 mmol/L (10-20); BUN (Urea Nitrogen) 31 mg/dL (8.9-20.6); Calc. Creatinine Clearance 13 mL/min (70-130); Calcium 8.4 mg/dL (7.8-10.44); Carbon Dioxide 24 mmol/L (22-29); Chloride 94 mmol/L (98-107); Estimated GFR-MDRD 7; Glucose 108 mg/dL (70-105); Sodium 133 mmol/L (136-145)
--- NOTE | 2018-05-04 08:35 | RAD ---
CHEST TWO VIEWS: HISTORY: Pneumonia. CHF. COMPARISON: None. FINDINGS: Two views of the chest show a normal sized cardiomediastinal silhouette. There is elevation of the r ight hemidiaphragm. Atelectasis is seen in the right lung base. No consolidation or pleural effusio n is seen. IMPRESSION: 1. No evidence of acute cardiopulmonary disease. 2. Right basilar atelectasis. POS: [facility]
[2018-05-04] MEDS: Losartan 25 MG TAB PO SCH (08:51)
[2018-05-04] MEDS: Metoclopramide HCl 10 MG TAB PO SCH ×2 (08:51→13:04)
[2018-05-04] MEDS: Sevelamer Carbonate 800 MG TAB PO SCH ×2 (08:51→13:03)
[2018-05-04] MEDS: NIFEdipine XL 30 MG TAB PO SCH (08:52)
[2018-05-04] MEDS: hydrALAZINE 25 MG TAB PO SCH ×2 (08:52→13:03)
[2018-05-04] MEDS: cloNIDine 0.2 MG TAB PO SCH (08:52)
[2018-05-04] MEDS: Folic Acid 1 MG TAB PO SCH (08:52)
[2018-05-04] MEDS: Carvedilol 25 MG TAB PO SCH (08:53)
[2018-05-04] MEDS: Pantoprazole 40 MG VIAL IVP SCH (08:54)
[2018-05-04] MEDS ORDERED: Epoetin (ESRD) 20,000 UNITS/ML SC SCH (09:00)
[2018-05-04] MEDS ORDERED: Polyethylene Glycol 3350 17 GM Packet PER TUBE SCH (09:00)
--- NOTE | 2018-05-04 09:09 | CON ---
DATE OF CONSULTATION: REASON FOR CONSULTATION: Vomiting. HISTORY OF PRESENT ILLNESS: Mr. Martinez is a pleasant 47-year-old, who has end- stage renal disease from diabetes and hypertension. He is on dialysis since about 2014. He for the past week or two has had cough and vomiting. He has not really been able to tolerate his medications. He had been to the ER twice, once here and once in [place]. Emergency room physician had determined that he probably had pneumonia and started treatment. At the time, he is not having quite the vomiting that he was. Early on when he was sick about the first week, he had some really bad chest pain and I think that is what brought him to one of the ER visits, although nothing acute was found and he was treated with some type of GI cocktail by his description. He has had low-grade fever to about 100 to 100.4. He stays at home, his states correlates he has been around sick daughter apparently but no else has been sick at home. He has had no hematemesis or hematochezia. He did describe it very dark stool at least once this past week, but he also notes he was taking some Pepto- Bismol. He has had no coffee-grounds emesis either. He denies any similar instances in the past, although he has had pneumonia before and he does get reflux sometimes but does not know if he takes medicines at home. PAST MEDICAL HISTORY: Type 2 diabetes, hypertension, end-stage renal disease, dialysis Friday, , and Friday, previous episodes of pneumonia with decortication, previous endoscopies, upper and lower at [facility]. PAST SURGICAL HISTORY: Right BKA, right eye surgery, and dialysis fistula. SOCIAL HISTORY: Does not smoke, drink, or use drugs. His is at the bedside. ALLERGIES: GENTAMICIN. MEDICATIONS: At home reported to include; 1. Coreg. 2. Calcitrol. 3. Nifedipine. 4. Lantus. 5. NovoLog. Present medications; 1. Levofloxacin. 2. Reglan. 3. Sodium chloride. 4. P.r.n. labetalol. 5. Insulin sliding scale. REVIEW OF SYSTEMS: Negative for dysphagia or odynophagia. Negative headaches. Negative vision changes. He states that he has no issues and compliance with medications. He just has not been able to take his blood pressure medicine secondary to vomiting when he came in and this is why he is hypertensive. He is very fatigued. He denies any chills or rigors. Denies overt abdominal pain or diarrhea. FAMILY HISTORY: Negative for colorectal cancer or liver disease. PHYSICAL EXAMINATION: VITAL SIGNS: Temperature is 98.6, pulse 90, O2 saturation 94% on 2 L nasal cannula, and blood pressure 197/90. GENERAL: He is a large man, fairly muscular, seen in bed. He is very nice and comfortable. Oropharynx is moist. Conjunctivae clear. NECK: Supple. No adenopathy. LUNGS: Decreased breath sounds present in the right base. There is slight wheezing, crackles, upper airway sounds bilaterally in the upper jara. HEART: Regular rate and rhythm. ABDOMEN: Soft and nontender. Palpable hepatosplenomegaly. EXTREMITIES: No clubbing, cyanosis, or edema. There is no adenopathy palpated. SKIN: No rash or lesions. LABORATORY STUDIES: White count 10, it was 14 on 04/10/2018, hemoglobin is 10.4 , platelet count is 241, glucose 147. BNP was 134, albumin 3.2, protein 7.1, globulin 3.9, lipase 7, AST and ALT are 19 and 31, alkaline phosphatase 138, bilirubin normal at 0.4. Sodium 135, potassium 3.5, BUN and creatinine are 23 and 6.6. DIAGNOSTIC DATA: Chest x-ray showed right lower lung infiltrate and possible effusion. CT dissection protocol negative. ASSESSMENT: 1. This patient is being admitted with diagnosis of pneumonia, is on antibiotics now, feeling little bit better. He has had a previous history of pneumonia with decortication in the past at [facility]. It is unclear what side that was on. There was some right lower lobe atelectasis in lung. It is unclear if that is a chronic change or not, but I agree with treating for pneumonia. 2. History of nausea and vomiting, this seems to be really secondary to the pneumonia probably. It is possible it was a primary event may also been secondary to him getting sick and not being able to take his medication and getting hypertensive urgencies. He did report some melena, but he was taking Pepto-Bismol. He shows no signs of acute GI hemorrhage. He never had any hematemesis or coffee-grounds emesis without vomiting he was doing at home. RECOMMENDATIONS: I would start a PPI IV q.12h which already ordered and we will follow with you. As his respiratory status improves, would consider endoscopy if he has persistent upper GI symptoms. At this time with no acute GI bleeding and no vomiting presently, I think that his pneumonia puts him at a little bit increased risk for conscious sedation or TIVA and unless he has overt bleeding, I would not intervene until his pneumonia is improved. Obviously if he has ongoing vomiting, we can reconsider endoscopy. We will how he respond to the antibiotics. Job ID: [id number] MTDD
--- NOTE | 2018-05-04 09:27 | PRG ---
DATE OF SERVICE: 05/04/2018 SUBJECTIVE: Mr. Martinez is a 47-year-old black male with ESRD, type 2 diabetes mellitus, and admitted for persistent refractory nausea and vomiting. During this admission, he was diagnosed to have pneumonia. He has been empirically treated with antibiotics. He was restarted back on his Reglan. Nausea and vomiting are much improved. He is feeling better. No new complaints today. No chest pain or shortness of breath. OBJECTIVE: VITAL SIGNS: Blood pressure 182/82, heart rate 87, respiratory rate 20, temperature 97.9, pulse ox 92%. GENERAL: Noted to be awake, alert, comfortable, not in distress. SKIN: Adequate turgor. HEENT: He has pinkish conjunctivae. Anicteric sclerae. No neck mass. No carotid bruits. No JVD. CHEST: No deformities. LUNGS: Clear breath sounds. HEART: Normal sinus rhythm. No murmurs, gallops, or rubs. ABDOMEN: Globular, soft, nontender. No masses. EXTREMITIES: No edema. No deformities. Status post right BKA. MEDICATIONS: Medications of May 04, 2018, was reviewed. LABORATORY DATA: Laboratories of AprilMay 04, 2018, white count 8.4, hemoglobin 9.6. Sodium 133, potassium 4, chloride 94, carbon dioxide 24, BUN 31, creatinine 10.48, glucose 108, calcium 8.4. ASSESSMENT AND PLAN: 1. End-stage renal disease, stable. Continuing Friday, , and Friday hemodialysis regimen. Fluid removal only as tolerated. 2. Pneumonia, on p.o. antibiotics. Doing well. 3. Nausea and vomiting, clinically improving. As per recommendation by GI, supportive care, no endoscopy for the moment. 4. Anemia. We will start the patient on Epogen if this has not been started yet. 5. Overall agree with current management. Job ID: [id number]
[2018-05-04 15:43] VITALS: BP 156/72; TEMP 98
--- NOTE | 2018-05-05 07:22 | DIS ---
DATE OF ADMISSION: 05/01/2018 DATE OF DISCHARGE: 05/04/2018 PRIMARY CARE PROVIDER: Dr. Kamron Wiggins. DISPOSITION: Discharged home. FINAL DIAGNOSES: Right lower lobe pneumonia; hypertensive urgency; chest pain; end-stage renal disease; diabetes mellitus, type 2, without complication; headache. DISCHARGE MEDICATIONS: 1. Renvela three tablets t.i.d. 2. Lantus 10 units in the evening. 3. Clonidine 0.2 mg b.i.d. 4. Coreg 50 mg p.o. b.i.d. 5. Nifedipine 60 mg a day. 6. Cozaar 100 mg a day. 7. Hydralazine 50 mg q.i.d. 8. Levaquin 250 mg p.o. q.48 hours x4 tablets. ALLERGIES: TO GENTAMICIN. HOSPITAL COURSE: The patient admitted to the [facility] through [facility] with hypertensive urgency. He had had nausea and vomiting. He had been continuing to receive his dialysis. Blood cultures were started. He was placed on IV Levaquin. Nephrology was consulted for dialysis. Accu-Chek sliding scale was started. The patient was seen in consultation by Dr. Micheal Sánchez, Nephrology; Dr. Riccardo Redd, Gastroenterology. No procedures were done. The patient was treated with aforementioned hemodialysis. His initial laboratory; creatinine 6.63, BUN 23, chloride 94, CO2 of 28, sodium of 135, potassium 3.5. Troponins were 0.05, 0.04, 0.05. Hematology; white cell count was 10.0, 7.6, and 8.4 on the 28th, the 3rd, and the 4th. Hemoglobin was 10.4, 9.4, and 9.6. Blood and urine cultures were negative. He has dramatically improved. His chest x-ray, which initially showed atelectasis and infiltrate in the right lower lobe is now clear with exception of some plate atelectasis. He will require followup chest x-ray at the time of being seen by his primary care physician. His blood pressure required increasing his nifedipine to 60 mg a day and hydralazine 50 mg four times a day. I am just visiting, his blood pressure is 156/72. Chest shows some scant rales in the right lower lobe, but basically clear. He is being discharged for followup with Dr. Wiggins in 7 days. Prescriptions have been written. DIET: Diabetic. CODE STATUS: Full. Pending at discharge, nothing. He will require a chest x-ray with followup. Job ID: [id number]
== END 2018-05-04 17:42 | disposition home or self-care (01) | DRG 193 ==
LOC: ERS 17:47 → ERHOLD 22:00 → OBSVTOIN 05-01 03:16 → 2NO 05-01 04:42
PROVIDERS: ADMIT Hospitalist; ATTEND Hospitalist
PROC: 5A1D70Z Performance of Urinary Filtration, Intermittent, Less than 6 Hours Per Day (ICD-10-PCS; principal; 2018-05-02)
DX: J18.1 Lobar pneumonia, unspecified organism (principal); N18.6 End stage renal disease; J91.8 Pleural effusion in other conditions classified elsewhere; I12.0 Hypertensive chronic kidney disease with stage 5 chronic kidney disease or end stage renal disease; E11.22 Type 2 diabetes mellitus with diabetic chronic kidney disease; I16.0 Hypertensive urgency; E11.43 Type 2 diabetes mellitus with diabetic autonomic (poly)neuropathy; K31.84 Gastroparesis; I73.9 Peripheral vascular disease, unspecified; D64.9 Anemia, unspecified; E53.8 Deficiency of other specified B group vitamins; D75.89 Other specified diseases of blood and blood-forming organs; G47.00 Insomnia, unspecified; Z99.2 Dependence on renal dialysis; Z89.511 Acquired absence of right leg below knee; Z98.890 Other specified postprocedural states; Z88.1 Allergy status to other antibiotic agents; Z79.4 Long term (current) use of insulin; Z79.899 Other long term (current) drug therapy
CPT/HCPCS: 36415; 36416; 71045; 71046; 71275; 76705; 80048; 80053; 82274; 82553; 82607; 82746; 83036; 83690; 83735; 83880; 84484; 85025; 87040; 87804; 90935; 94640; 96365; 96366; 96375; C9113; G0257; J1956; J2270; J2550; J3010; J3490; J7050; J7620; J8597; Q4081; Q9966

== ENCOUNTER 2018-05-22 05:49 | Day surgery (SDC) | payer MEDICARE ==
--- NOTE | 2018-04-20 16:38 | HP ---
HISTORY OF PRESENT ILLNESS: Sedrick Martinez is a 47-year-old black male, dialyzes Friday, , and Friday in [place]. He is followed by Dr. Sánchez. In 2014, I placed a left arm Daksha fistula and a laparoscopic peritoneal dialysis catheter. He dialyzed well utilizing this, but despite good mechanical function of his peritoneal dialysis catheter, he does not adequately exchange and has converted to hemodialysis. I have been asked to see him regarding removal of his PD catheter. Plans to remove this under IV sedation, local anesthesia as an outpatient. He understands risks, benefits, and consents. MEDICATIONS: 1. Clonidine. 2. Losartan. 3. Carvedilol. 4. Calcitriol. 5. Lantus insulin. 6. NovoLog insulin. ALLERGIES: GENTAMICIN. SOCIAL HISTORY: Tobacco, none. Alcohol, none. PAST MEDICAL HISTORY: Type 1 diabetes mellitus, hypertension, end-stage renal disease, dialyzing left Daksha fistula that I placed in may 2014. 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 REVIEW OF SYSTEMS: Ten-point noncontributory, otherwise. PHYSICAL EXAMINATION: VITAL SIGNS: Blood pressure 137/61, 67, temperature 99.5 degrees. HEAD, EARS, EYES, NOSE, AND THROAT: Unremarkable. LUNGS: Clear to auscultation. CARDIAC: Regular rate and rhythm without murmur or gallop. ABDOMEN: Soft and nontender. PD catheter, left lower quadrant. Left Daksha fistula, good thrill and bruit. ASSESSMENT/PLAN: Functional Daksha fistula, inadequate peritoneal dialysis, has converted to hemodialysis. We will plan for removal of his PD catheter under IV sedation, local anesthesia as outpatient. On the day he declares, he will call me when he is ready to schedule this. Job ID: [id number]
[2018-05-21 15:49] VITALS: BMI 35.6
[2018-05-22] MEDS ORDERED: Bupivacaine HCl 0.5%/Epinephrine 1:200,000/PF 30 ml Vial ONE (06:28)
[2018-05-22 06:54] LABS: #Eosinphils 0.1 thou/uL (0.0-0.7); #Lymphocytes 0.8 thou/uL (1.20-3.40); #Monocytes 0.6 thou/uL (0.11-0.59); #Neutrophils 3.9 thou/uL (1.40-6.50); %Basophils 0.7 % (0.0-1.0); %Eosinophils 1.1 % (0.0-10.0); %Lymphocytes 14.5 % (21.0-51.0); %Monocytes 10.8 % (0.0-10.0); %Neutrophils 72.8 % (42.0-75.0); Hemoglobin 11.2 g/dL (14.0-18.0); Mean Corpuscular HGB CONC 31.1 g/dL (32.0-36.0); Mean Corpuscular Volume 99.7 fL (78.0-98.0); Mean Platelet Volume 8.2 fL (7.4-10.4); Platelet Count 200 thou/uL (130-400); RBC Distribution Width 16.6 % (11.5-14.5); White Blood Cell (WBC) Count 5.3 thou/uL (4.8-10.8)
[2018-05-22 07:00] LABS: Anion Gap 11 mmol/L (10-20); BUN (Urea Nitrogen) 26 mg/dL (8.9-20.6); Calc. Creatinine Clearance 19 mL/min (70-130); Calcium 8.9 mg/dL (7.8-10.44); Carbon Dioxide 32 mmol/L (22-29); Chloride 98 mmol/L (98-107); Estimated GFR-MDRD 10; Glucose 127 mg/dL (70-105); Sodium 137 mmol/L (136-145)
[2018-05-22] MEDS ORDERED: Famotidine/PF 20 mg/2ml Vial ONE (07:05)
[2018-05-22] MEDS ORDERED: Fentanyl 100 MCG/2 ML VIAL ONE (07:05)
[2018-05-22] MEDS ORDERED: Midazolam HCl 2 mg/2 ml Vial ONE (07:30)
[2018-05-22] MEDS ORDERED: Ketamine 50 MG/ML (10ML VIAL) ONE (07:31)
[2018-05-22] MEDS ORDERED: Bupivacaine/Epinephrine 0.25% 30 ML VIAL ONE (08:28)
[2018-05-22] MEDS ORDERED: Lidocaine 2% PF 5 ML VIAL ONE ×2 (08:28→08:30)
--- NOTE | 2018-05-22 11:22 | OP ---
DATE OF PROCEDURE: 05/22/2018 PREOPERATIVE DIAGNOSES: Peritoneal dialysis catheter with inadequate peritoneal dialysis, probably due to past radiation therapy and end-stage renal disease. POSTOPERATIVE DIAGNOSES: Peritoneal dialysis catheter with inadequate peritoneal dialysis, probably due to past radiation therapy and end-stage renal disease. PROCEDURE PERFORMED: Removal of peritoneal dialysis catheter double-cuffed pigtail, left lower quadrant. ANESTHESIA: TIVA, ketamine, local of 0.5% Marcaine with epinephrine 30 mL mixed with 2% Xylocaine 5 mL and 0.25% Marcaine with epinephrine 30 mL. DESCRIPTION OF PROCEDURE: The patient was taken to the operating room, where under intravenous sedation, ketamine, abdomen was clipped of hair, prepared with ChloraPrep and draped in routine fashion. Perineal dialysis catheter transected, had been prepped with ChloraPrep. It was dissected free, freeing the cuffs and catheter removed intact. Packing the wound. Medipore dressing was applied. The patient tolerated the procedure well. Job ID: [id number]
[2018-05-22] MEDS ORDERED: Ondansetron PF 4 MG/2 ML Vial ONE (13:27)
[2018-05-22] MEDS ORDERED: Metoprolol Tartrate 5 MG/5 ML VIAL ONE (13:27)
== END 2018-05-22 10:57 | disposition home or self-care (01) ==
LOC: SDC 05:49
PROVIDERS: ATTEND Specialist
PROC: 0WPG33Z Removal of Infusion Device from Peritoneal Cavity, Percutaneous Approach (ICD-10-PCS; principal; 2018-05-22)
DX: T85.691A Other mechanical complication of intraperitoneal dialysis catheter, initial encounter (principal); I12.0 Hypertensive chronic kidney disease with stage 5 chronic kidney disease or end stage renal disease; E10.22 Type 1 diabetes mellitus with diabetic chronic kidney disease; N18.6 End stage renal disease; Z99.2 Dependence on renal dialysis; Z79.84 Long term (current) use of oral hypoglycemic drugs; Z79.899 Other long term (current) drug therapy; Z88.1 Allergy status to other antibiotic agents
CPT/HCPCS: 36415; 36416; 80048; 85025; J0670; J2001; J2250; J3010; S0028

== ENCOUNTER 2019-01-26 18:48 | Inpatient (IN) | payer MEDICARE ==
[2019-01-26] MEDS ORDERED: Minoxidil 2.5 MG TAB PO SCH (20:15)
[2019-01-26] MEDS ORDERED: niCARdipine 25 MG in Sodium Chloride 0.9% 250 ML 240 ML IVPB SCH (20:30)
--- NOTE | 2019-01-26 20:30 | RAD ---
PORTABLE AP CHEST X-RAY: 01/26/19 HISTORY: Hypertensive urgency. COMPARISON: 05/04/18. FINDINGS: The cardiac silhouette remains enlarged. There is persistent elevation of the right hemidiaphragm wit h volume loss at the right lung base. Lungs are otherwise clear. Pulmonary vasculature is within norm al limits. There has been no other interval change when compared to the prior exam. IMPRESSION: 1. Persistent enlargement of the cardiac silhouette. 2. Stable elevation of the right hemidiaphragm with volume loss at the right lung base. 3. No acute cardiopulmonary process. POS: [facility]
[2019-01-26] MEDS ORDERED: cloNIDine 0.1 MG TAB ONE (20:45)
[2019-01-26] MEDS ORDERED: hydrALAZINE 25 MG TAB ONE (20:45)
[2019-01-26] MEDS ORDERED: Carvedilol 25 MG TAB PO SCH (21:00)
[2019-01-26 23:22] VITALS: BMI 32.6
[2019-01-26] MEDS ORDERED: NIFEdipine XL 30 MG TAB PO SCH (23:45)
[2019-01-26] MEDS ORDERED: cloNIDine 0.1 MG TAB PO SCH (23:45)
[2019-01-27 00:07] VITALS: BP 174/77
[2019-01-27] MEDS ORDERED: Ondansetron ODT 4 MG TAB PO PRN (00:19)
[2019-01-27] MEDS ORDERED: Calcium Carbonate 500 MG ChewTAB PO PRN (00:19)
[2019-01-27] MEDS ORDERED: Ondansetron PF 4 MG/2 ML Vial IVP PRN (00:19)
[2019-01-27] MEDS ORDERED: Acetaminophen 325 MG TAB PO PRN (00:19)
[2019-01-27] MEDS ORDERED: Dextrose 5% in Water 1,000 ML IV PRN (00:36)
[2019-01-27] MEDS ORDERED: Insulin Regular 300 UNITS/3 ML VIAL SC PRN ×2 (00:36)
[2019-01-27] MEDS ORDERED: Dextrose 50% Abboject 50 ML SYRINGE SLOW IVP PRN (00:36)
--- NOTE | 2019-01-27 01:22 | HP ---
The patient was seen and examined on 26 January 2019 at 10:00 p.m. in the emergency room. CHIEF COMPLAINT: Elevated blood pressure. The patient is a transfer from [facility]. PRIMARY CARE PHYSICIAN: Dr. Wiggins. PRIMARY TOE CLOSING MACHINE TENDER: Dr. Sánchez. HISTORY OF PRESENT ILLNESS: The patient is a 48-year-old male with end-stage renal disease on hemodialysis, hypertension, diabetes mellitus type 2, presented to the emergency room at [facility] with elevated blood pressure. His blood pressure at the dialysis center was 240 systolic. There was no chest pain shortness of breath, visual disturbances, nausea, vomiting, or flank pain reported. His usual blood pressures are in 140s. He is out of Procardia XL over the last 3 to 4 days. He, however, took all other home medications including carvedilol, clonidine, hydralazine, and losartan this morning. He is also on minoxidil 2.5 mg q.p.m., which he received in the emergency room. He is currently on Cardene drip. He denies any other complaints. The patient's blood pressure remained elevated despite 2 doses of clonidine and 2 doses of hydralazine IV. He was then started on Cardene drip. Per Dr. Sánchez's recommendation, he was transferred to this facility for hospital admission. His blood pressure improved to 180/80 on Cardene drip. PAST MEDICAL HISTORY: 1. Diabetes mellitus type 2. 2. Hypertension. 3. End-stage renal disease, on hemodialysis by Dr. Sánchez Friday, Friday, and Friday. He underwent dialysis on the (today due to holiday schedule). 4. GERD. 5. Obesity with a BMI of 32. PAST SURGICAL HISTORY: Right below-knee amputation. Right eye surgery. Dialysis access. ALLERGIES: GENTAMICIN. CURRENT HOME MEDICATIONS: Per patient report. 1. He takes calcitriol 0.25 mcg daily, Carvedilol 25 b.i.d. 2. Vitamin D3 2000 units daily. 3. Clonidine 0.2 mg b.i.d. 4. Hydralazine 100 mg 3 times daily. 5. Lantus insulin 10 units q.p.m. 6. Insulin NovoLog sliding scale. 7. Imdur 60 mg daily. 8. Cozaar 100 mg daily. 9. Minoxidil 2.5 mg daily. 10. Procardia XL 90 mg ER. The patient is out of Procardia XL over the last 3 days. SOCIAL HISTORY: The patient currently lives at home with his family. He denies current use of smoking. He is a former smoker, quit in 2006. ALLERGIES: THE PATIENT IS ALLERGIC TO GENTAMICIN. FAMILY HISTORY: Positive for diabetes and kidney disease in his family. REVIEW OF SYSTEMS: All other review of systems was reviewed and was found negative. PHYSICAL EXAMINATION: VITAL SIGNS: Vital signs at [facility] showed temperature 98.3, pulse of 73 with a blood pressure of 246/114 with O2 saturation 100% on room air. GENERAL: A 48-year-old male in no apparent distress, currently on Cardene drip. HEENT: Head is atraumatic and normocephalic. Sclerae anicteric. Moist mucous membranes. No oral lesion. NECK: Supple. No JVD. No carotid bruit. LUNGS: Showed scattered rhonchi at bases without any rales. No accessory muscle use. No wheezing. HEART: S1, S2 present. Regular rate and rhythm. No rubs or gallops. ABDOMEN: Soft, nontender. Bowel sounds present. EXTREMITIES: No edema or calf tenderness. The patient has a history of right below-knee amputation. SKIN: Warm and dry. LYMPH NODES: No palpable lymph nodes in the neck. NEUROLOGY: Grossly nonfocal. Moves all 4 extremities. Power was 5/5 in all extremities. PSYCHIATRY: Alert, awake and oriented x3. Normal affect. LABORATORY DATA: Creatinine was 3.65 with hemoglobin 9.8. Chest x-ray at [facility] showed cardiomegaly with increased bronchopulmonary markings. EKG by my review showed sinus rhythm with left axis deviation without any significant ST-T wave changes. BNP was 754. Chest x-ray at this facility by my review was negative for infiltrate. IMPRESSION: 1. Hypertensive crisis secondary to medication noncompliance. The patient is out of Procardia XL for last 3 days. 2. End-stage renal disease, on hemodialysis. The patient underwent dialysis earlier today. 3. Diabetes mellitus type 2. 4. Hypertension. 5. History of left below-knee amputation. 6. Gastroesophageal reflux disease. 7. Obesity with a body mass index of 32.6. PLAN: The patient will be monitored in the Intensive Care Unit. We will continue Cardene drip. We will resume all of his home medications tonight. We will gradually wean off the Cardene drip. Goal blood pressure for tonight will be systolic in 160 to 180s. We will recheck basic metabolic profile in a.m. Consult nephrology Dr. Sánchez for maintenance hemodialysis. The patient was extensively counseled to be compliant with all of his medications and to contact Dr. Sánchez, if he is out of any of his medications. We will also add insulin sliding scale. Plan was discussed with the patient in detail. He stated understanding. Job ID: [id number]
[2019-01-27 04:27] LABS: #Eosinphils 0.1 thou/uL (0.0-0.7); #Monocytes 0.7 thou/uL (0.11-0.59); #Neutrophils 5.2 thou/uL (1.40-6.50); %Basophils 0.5 % (0.0-1.0); %Eosinophils 1.4 % (0.0-10.0); %Lymphocytes 13.6 % (21.0-51.0); %Monocytes 10.6 % (0.0-10.0); %Neutrophils 73.9 % (42.0-75.0); Mean Corpuscular HGB CONC 32.2 g/dL (32.0-36.0); Mean Corpuscular Hemoglobin 29.3 pg (27.0-31.0); Mean Platelet Volume 10.3 fL (7.4-10.4); Platelet Count 167 thou/uL (130-400); Red Blood Cell (RBC) Count 3.41 mill/uL (4.70-6.10)
[2019-01-27 04:38] LABS: Anion Gap 13 mmol/L (10-20); BUN (Urea Nitrogen) 20 mg/dL (8.9-20.6); Calc. Creatinine Clearance 23 mL/min (70-130); Calcium 8.8 mg/dL (7.8-10.44); Carbon Dioxide 29 mmol/L (22-29); Chloride 97 mmol/L (98-107); Estimated GFR-MDRD 13; Glucose 97 mg/dL (70-105); Potassium 3.3 mmol/L (3.5-5.1); Sodium 136 mmol/L (136-145)
[2019-01-27] MEDS ORDERED: Carvedilol 25 MG TAB PO SCH (08:00)
[2019-01-27 08:32] VITALS: TEMP 98.5
[2019-01-27] MEDS ORDERED: hydrALAZINE 25 MG TAB PO SCH (09:00)
[2019-01-27] MEDS ORDERED: NIFEdipine XL 90 MG TAB PO SCH (09:00)
[2019-01-27] MEDS ORDERED: Famotidine 20 MG TAB PO SCH (09:00)
[2019-01-27] MEDS ORDERED: Losartan 25 MG TAB PO SCH (09:00)
[2019-01-27] MEDS ORDERED: Heparin 5,000 UNITS/ML VIAL SC SCH (09:00)
[2019-01-27] MEDS ORDERED: cloNIDine 0.2 MG TAB PO SCH (09:00)
[2019-01-27] MEDS ORDERED: Calcitriol 0.25 MCG CAP PO SCH (09:00)
--- NOTE | 2019-01-27 09:03 | CON ---
DATE OF CONSULTATION: HISTORY OF PRESENT ILLNESS: Sedrick Martinez is a 48-year-old gentleman with end-stage renal disease, presents with uncontrolled hypertension, who said his systolic blood pressure was greater than 200. He had a chest pain, headache, recent shortness of breath symptoms. He tells me that sometimes when he has problems with abdominal indigestion, etc. Blood pressure medication apparently does not work. This morning, he is better. He wants to go home. PAST MEDICAL HISTORY: Diabetes, renal failure, and hypertension. PAST SURGICAL HISTORY: Including right BKA, previous eye surgery, previous what appears to be decortication . SOCIAL HISTORY: He is a cyber security. HOME MEDICATIONS: 1. Losartan 100. 2. Coreg. 3. Rocaltrol 0.25. 4. Catapres two tablets b.i.d. 5. Hydralazine. 6. Insulin. 7. Isosorbide mononitrate. 8. Nifedipine. 9. Minoxidil. ALLERGIES: GENTAMICIN. PHYSICAL EXAMINATION: GENERAL: He is awake, alert, and responsive. Blood pressure 160/70, , and sats 100%. CHEST: No wheezing or crackles. CARDIAC: Normal S1 and S2. No gallops. ABDOMEN: Soft. IMAGING STUDIES: X-ray shows cardiomegaly, no acute infiltrates. LABORATORY DATA: White count is normal. Creatinine 5.6. ASSESSMENT: 1. Uncontrolled hypertension. 2. Diabetes. 3. Chronic renal failure. 4. Hypertension. PLAN: Continue home medication. He probably has some element of gastroparesis from his diabetes, but has seen GI in the past. At this stage, it is unclear any additional input. His right hemidiaphragm is elevated. We will follow while in the ICU. Consultation note, 70 minutes, 50% direct patient care. Job ID: [id number]
[2019-01-27] MEDS ORDERED: Potassium Chloride 20 MEQ TAB PO SCH ×2 (10:00)
--- NOTE | 2019-01-27 15:33 | CON ---
DATE OF CONSULTATION: HISTORY OF PRESENT ILLNESS: Mr. Sedrick Martinez is a 48-year-old black male with ESRD and admitted for labile hypertension. This was also associated with nausea and vomiting. Of interest, this patient has ran out of his BP medications. For that reason, blood pressure was significantly elevated. We are now being consulted for his maintenance hemodialysis as well as for his labile hypertension. His blood pressure is much improved with Cardene drip. In addition, his BP medications were resume back. REVIEW OF SYSTEMS: No chest pain or shortness of breath. No nausea. No vomiting. No diarrhea. No constipation. No productive cough. No fever or chills. No syncopal episode. Appetite and energy level are fair. MEDICATIONS: The patient is currently on the following medicines 1. Calcitriol 0.25 mcg daily. 2. Carvedilol 25 mg p.o. b.i.d. 3. Calcium carbonate 1000 mg q.4 p.r.n. 4. Clonidine 0.2 mg p.o. b.i.d. 5. Famotidine 20 mg tablet once a day. 6. Heparin 5000 units subcu b.i.d. 7. Hydralazine 100 mg p.o. t.i.d. 8. Insulin regular sliding scale. 9. Isosorbide mononitrate 60 mg tablet once a day. 10. Losartan 100 mg once a day. 11. Minoxidil 2.5 mg daily. 12. Status post nicardipine drip. 13. Nifedipine 90 mg daily. PAST MEDICAL HISTORY: 1. ESRD from diabetic nephropathy. 2. Type 2 diabetes mellitus. 3. Labile hypertension. 4. Cardiomegaly. 5. Peripheral vascular disease. PAST SURGICAL HISTORY: Status post right BKA, status post right eye surgery, status post AV fistula placement, status post cuffed hemodialysis catheter placement, status post PD catheter placement with subsequent removal. SOCIAL HISTORY: The patient is , two children. Lives in [place]. 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 No IV drug abuse. No alcohol. Status post blood transfusion. Education high school. ALLERGIES: ? GENTAMICIN. TRAUMA: None. IMMUNIZATIONS: Up-to-date. HOSPITALIZATIONS: Please see past medical history. FAMILY HISTORY: No family history of ESRD. PHYSICAL EXAMINATION: VITAL SIGNS: Blood pressure is currently at 143/75, heart rate 69, respiratory rate 15, O2 saturation 94%. GENERAL: Awake, alert, comfortable, not in distress. SKIN: Adequate turgor. HEENT: He has pinkish conjunctivae, anicteric sclerae. NECK: No neck mass. No carotid bruits. No JVD. CHEST: No deformities. LUNGS: Clear breath sounds. No wheezing. No crackles. HEART: Normal sinus rhythm. No murmur. No gallops. No rubs. ABDOMEN: Globular, soft, nontender, no masses. EXTREMITIES: Status post right BKA. Left leg, no edema. LABORATORY DATA: Laboratories of January 27, 2019, white count 7, hemoglobin 10. Sodium 136, potassium 3.3, chloride 97, carbon dioxide 29, BUN 20, creatinine 5.61, glucose 97, calcium 8.8. BNP 754. January 26, 2019, chest x-ray, enlargement of cardiac silhouette, no acute cardiopulmonary process. ASSESSMENT AND PLAN: 1. Labile hypertension, much improved with resumption of his BP medications. He has some degree of noncompliance with his BP medications. The patient was counseled. Continue current oral BP medications. 2. Endstage renal disease, stable. The patient did receive hemodialysis yesterday. There is no indication for any emergent hemodialysis. Agree with plan to discharge with this patient. We will follow him up at the dialysis unit. Job ID: [id number]
[2019-01-27] MEDS ORDERED: Minoxidil 2.5 MG TAB PO SCH (21:00)
--- NOTE | 2019-01-29 07:23 | DIS ---
DATE OF ADMISSION: 01/26/2019 DATE OF DISCHARGE: 01/27/2019 CONSULTATIONS: Pulmonary with Dr. Jonathan Valenzuela. BRIEF HISTORY OF PRESENT ILLNESS: This is a 48-year-old male with a past medical history of ESRD, hypertension, diabetes, who presented to the emergency room at [facility] in [place] with elevated blood pressure. The patient's blood pressure was noted to be 240 systolic. He had received dialysis prior to transfer. The patient stated that he had dropped his Procardia on the floor a few days ago and was not taking it because he did not want to pick out hand his medications off the floor. He did, however, take all of his other home medications. He also stated that he was having some indigestion and he felt that his blood pressure medications are not as effective when he has abdominal complaints. He was transferred to the ER here where he was noted to have a blood pressure of 204/82. He was given 2 doses of clonidine and 2 doses of hydralazine IV. However, due to persistent elevation, he was started on a nicardipine drip. Dr. Sánchez was called in the ER and he was also given minoxidil 2.5 mg prior to admission. Hypertensive urgency: The patient was resumed on all of his home medications. He was weaned off nicardipine drip and his blood pressures remained in the 160s. Currently, the patient is asymptomatic with no headaches, chest pain, shortness of breath, numbness, or weakness in his extremities. This morning the patient took clonidine 0.2 mg, nifedipine 90 mg, hydralazine 100 mg, Imdur 60 mg. The patient did not take his losartan 100 mg because he states that he does not usually take them all at once. He did say that he will take his losartan when he gets home. The patient was asked whether he wanted a new prescription for his Procardia. However, the patient states that his insurance will not cover it because he got a recent refill on it last week. Therefore, he was advised that if his blood pressure is still elevated, to take an extra dose of minoxidil 2.5 mg. He also stated that he has nifedipine 30 mg tablets at home and will take 3 of those tablets instead of taking the 90 mg tablet that he dropped on the floor. The patient did have a chest x-ray that was unremarkable on admission. He will be discharged and he was advised to follow up with his PCP in a week and to call Dr. Sánchez if his blood pressure is persistently elevated. Anemia: The patient was noted to have a hemoglobin of 10. This is chronic for him. The patient can follow up with his PCP. ESRD: The patient gets dialysis with Dr. Sánchez. He received dialysis yesterday. He will follow up with Dr. Sánchez as an outpatient. Hypokalemia: The patient had a potassium of 3.3 on 01/27. He denied any diarrhea, but stated that he was not eating as much. He was given potassium 20 mEq prior to discharge. All of his other home medications were resumed on discharge. DISCHARGE PHYSICAL EXAMINATION: VITAL SIGNS: Temperature was 99.6, blood pressure 148/79, heart rate is 66, respiratory rate is 11, O2 saturation is 97% on room air. PERTINENT LABORATORY DATA: CBC on 01/27: Hemoglobin is 10.0, hematocrit 31. BMP on 01/27: Potassium is 3.3, creatinine 5.61. BNP: 754. PERTINENT IMAGING: Chest x-ray on 01/26 shows persistent enlargement of the cardiac silhouette. DISCHARGE CONDITION: Stable. DIET: Renal diet and diabetic diet. DISPOSITION: Home. DISCHARGE MEDICATIONS: 1. Coreg 25 mg p.o. b.i.d. 2. Clonidine 0.1 mg tablet take 2 tablets p.o. b.i.d. 3. Hydralazine 100 mg tablet p.o. t.i.d. 4. Imdur 60 mg p.o. daily. 5. Losartan 100 mg p.o. daily. 6. Minoxidil 2.5 mg tablet q.p.m. 7. Nifedipine 90 mg tablet daily. 8. Vitamin D3 of 2000 units p.o. daily. 9. Calcitriol 0.25 mcg p.o. daily. 10. Insulin glargine 10 units subcu q.p.m. 11. Insulin sliding scale. DISCHARGE INSTRUCTIONS: The patient is to follow up with his PCP within a week for followup of blood pressure. He should also continue to follow up with Dr. Sánchez and to call Dr. Sánchez if blood pressure is persistently elevated since he ran out of his Procardia. Job ID: [id number]
== END 2019-01-27 10:50 | disposition home or self-care (01) | DRG 304 ==
LOC: ERS 18:48 → CCU 23:06
PROVIDERS: ADMIT Internal Medicine; ATTEND Internal Medicine
DX: I16.0 Hypertensive urgency (principal); N18.6 End stage renal disease; I12.0 Hypertensive chronic kidney disease with stage 5 chronic kidney disease or end stage renal disease; E11.22 Type 2 diabetes mellitus with diabetic chronic kidney disease; Z99.2 Dependence on renal dialysis; K21.9 Gastro-esophageal reflux disease without esophagitis; E66.9 Obesity, unspecified; Z89.511 Acquired absence of right leg below knee; Z88.8 Allergy status to other drugs, medicaments and biological substances; Z79.4 Long term (current) use of insulin; Z79.899 Other long term (current) drug therapy; Z91.14 Patient's other noncompliance with medication regimen; Z68.32 Body mass index [BMI] 32.0-32.9, adult
CPT/HCPCS: 36415; 36416; 71045; 80048; 83880; 85025; 93005; J7050